=== PATIENT | male | born 1985 | race African-American/Black ===

== ENCOUNTER → 2017-05-31 | Outpatient (CLI) | payer OTHER ==
--- NOTE | 2017-06-01 08:53 | MRI ---
Indication: 5th finger fracture with pain Exam: MRI right hand without contrast .. Technique: Routine multiplanar multisequence imaging was performed through the right hand with attent ion to the 5th digit without contrast. Findings: There is moderate edema throughout the distal phalanx of the 5th digit . There is questiona ble bony irregularity along the distal phalanx which is difficult to delineate . The bony cortex othe rwise appears relatively intact but is ill-defined . The PIP joint appears intact with no fluid in th e joint . The middle and proximal phalanx of the 5th digit are intact and normal signal intensity . T here is mild stranding and edema in the soft tissues throughout the 5th digit which is more prominent distally with no focal fluid collection or mass. The surrounding bones tendons and ligaments appear intact and normal signal intensity. Impression: Moderate edema in the bone marrow throughout the distal phalanx of the 5th digit with some questionab le bony irregularity distally. This may be due to recent trauma and associated healing fracture of th e digit which was described on prior plain films but cannot definitely rule out edema from other etio logy such as early osteomyelitis or reactive edema from an erosive arthropathy. Recommend continued f ollow-up with x-rays and orthopedic correlation. Mild cellulitis or edema in the soft tissues throughout the 5th digit which is more prominent distall y with no focal fluid collection or abscess seen. Reported By:
== END | disposition home or self-care (01) ==
LOC: RAD 14:41
DX: S62.636A Displaced fracture of distal phalanx of right little finger, initial encounter for closed fracture (principal); X58.XXXA Exposure to other specified factors, initial encounter
CPT/HCPCS: 73221